=== PATIENT | female | born 1985 | race American Indian/Alaskan Native ===

== ENCOUNTER 2018-09-27 12:06 | Emergency (ER) | payer OTHER ==
[2018-09-27 12:15] VITALS: BMI 32.3
[2018-09-27 12:18] VITALS: BP 116/82; PULSE 92; RESP 18; TEMP 97.6; O2SAT 99
--- NOTE | 2018-09-27 12:42 | ED PDOC ---
Arrival/HPI - General Chief Complaint: Eye Problem Time Seen by Provider: 09/27/18 12:09 Historian: Patient - History of Present Illness Time/Duration: 1 week Symptom Onset: Gradual Symptom Course: Worsening Severity Level: Moderate Activities at Onset: Rest Associated Symptoms (Text): 09/27/18 12:39 Patient complains of approximately a one-week history of right lower eyelid redness pain and swelling. There is no actual eye problem. No visual disturbance. When questioning the patient, she has a history of diabetes. She stopped her oral medications several years ago. She does not recall what she was taking. She reports that this was on the advice of her physician. She has not followed up. She is currently taking no medications. Her blood sugar is elevated at 309. I discussed in detail with her that she needed to follow-up with her physician as soon as possible to get back onto her medication. Past Medical History - Past History Past History: No Previous - Infectious Disease Hx of Infectious Diseases: None - Cardiac Hx Cardiac Disorders: No - Pulmonary Hx Respiratory Disorders: No - Neurological Hx Neurological Disorder: No - HEENT Hx HEENT Disorder: No - Renal Hx Renal Disorder: No - Endocrine/Metabolic Hx Endocrine Disorders: Yes Hx Diabetes Mellitus Type 2: Yes - Hematological/Oncological Hx Blood Disorders: No - Integumentary Hx Dermatological Disorder: No - Musculoskeletal/Rheumatological Hx Musculoskeletal Disorders: No - Gastrointestinal Hx Gastrointestinal Disorders: No - Genitourinary/Gynecological Hx Genitourinary Disorders: No - Psychiatric Hx Psychophysiologic Disorder: No Hx Substance Use: No - Surgical History Other/Comment: hpv - Anesthesia Hx Anesthesia: No Family/Social History - Physician Review Nursing Documentation Reviewed: Yes Family/Social History: Unknown Family HX Smoking Status: Heavy Smoker > 10 Cigarettes Daily Hx Alcohol Use: Yes Frequency of alcohol use: Socially Hx Substance Use: No Allergies/Home Meds Allergies/Adverse Reactions: Allergies No Known Allergies Allergy (Verified 03/24/16 09:15) Review of Systems - Physician Review All systems were reviewed & negative as marked: Yes Physical Exam Vital Signs Temp Pulse Resp BP Pulse Ox 09/27/18 12:17 97.6 F 92 H 18 116/82 99 Temperature: Afebrile Blood Pressure: Normal Pulse: Regular Respiratory Rate: Normal Appearance: Positive for: Well-Appearing, Non-Toxic, Comfortable Pain Distress: None Mental Status: Positive for: Alert and Oriented X 3 Finger Stick Blood Glucose: 309 - Systems Exam Pupils: Present: PERRL Extroacular Muscles: Present: EOMI Conjunctiva: Present: Normal, Other (Right lower eyelid medial sty.) Medical Decision Making ED Course and Treatment: 09/27/18 12:41 There was a very small abscess on the stye. This was opened sterilely by myself using forceps. Disposition/Present on Arrival - Present on Arrival Any Indicators Present on Arrival: No History of DVT/PE: No History of Uncontrolled Diabetes: No Urinary Catheter: No History of Decub. Ulcer: No History Surgical Site Infection Following: None - Disposition Have Diagnosis and Disposition been Completed?: Yes Diagnosis: Stye, Hyperglycemia Disposition: HOME/ ROUTINE Disposition Time: 12:42 Patient Plan: Discharge Condition: GOOD Discharge Instructions (ExitCare): Hyperglycemia, Adult (DC), Stye (Hordeolum) Additional Instructions: Must follow-up with PMD as soon as possible for hyperglycemia. Follow up in ER as needed. Prescriptions: Amoxicillin/Clavulanate [Augmentin 875 MG-125 MG] 1 tab PO Q12 #20 tab
== END 2018-09-27 13:25 | disposition home or self-care (01) ==
LOC: ED 12:06
DX: H00.012 Hordeolum externum right lower eyelid (principal); E11.65 Type 2 diabetes mellitus with hyperglycemia; F17.210 Nicotine dependence, cigarettes, uncomplicated